=== PATIENT | female | born 1990 | race Caucasian/White ===

== ENCOUNTER 2017-03-16 11:56 | Inpatient (IN) | payer OTHER ==
[~2017-03-16] VITALS: Ht 160 cm; Wt 66.7 kg
[2017-03-16 12:20] VITALS: BP 102/73
--- NOTE | 2017-03-16 12:39 | NUR ---
PATIENT IS A 26 YO FEMALE BIB SELF FOR URINARY PAIN AND BURNING, AWAKE AND ALERT ABLE TO AMBULATE TO BED 11 UA OBTAINED.
--- NOTE | 2017-03-16 12:43 | NUR ---
Dr. Crawford evaluating patient at bedside.
[2017-03-16] MEDS ORDERED: KETOROLAC 60 MG/2 ML VIAL IM ONE (13:20)
[2017-03-16] MEDS ORDERED: MORPHINE SULFATE 4 MG/ML SYR IVP ONE ×3 (13:40→15:05)
[2017-03-16] MEDS ORDERED: ONDANSETRON 4 MG/2 ML VIAL IVP ONE (13:40)
--- NOTE | 2017-03-16 13:53 | NUR ---
US tech at bedside for exam.
--- NOTE | 2017-03-16 14:00 | NUR ---
US again by bedside. Patient tolerating well. Will continue to monitor.
--- NOTE | 2017-03-16 14:24 | NUR ---
pt talking and laughing with family by bedside
--- NOTE | 2017-03-16 15:00 | NUR ---
Pt states pain is 10/10; er md bueno notified and aware; vss; nad. Will continue to monitor.
[2017-03-16 15:34] LABS: HEMATOCRIT 42.1 % (36-48); MEAN CORPUSCULAR HEMOGLOBIN 32 pg (27-31); MEAN CORPUSCULAR HGB CONC 33 g/dL (33-37); MEAN CORPUSCULAR VOLUME 96 fL (80-94); PLATELET COUNT (AUTO) 320 K/uL (140-450); RED CELL DISTRIBUTION WIDTH 11.9 % (11.6-13.7); WHITE BLOOD COUNT (AUTO) 9.5 K/uL (4.8-10.8)
--- NOTE | 2017-03-16 15:42 | NUR ---
pt resting with eyes closed gurriddhi; vss; nad; pt with no complaints; will continue to monitor.
[2017-03-16 16:04] LABS: PROTHROMBIN TIME 10.4 secs (10.8-13.4)
[2017-03-16 16:06] LABS: ANION GAP 9.3 (8-16); CARBON DIOXIDE 29.7 mmol/L (21-32); CREATININE 0.8 mg/dL (0.6-1.3); TOTAL BILIRUBIN 0.4 mg/dL (0.0-1.0)
[2017-03-16 16:11] LABS: EOSINOPHILS % (MANUAL) 2 % (0-4); LYMPHOCYTES % (MANUAL) 38 % (20-46); MONOCYTES % (MANUAL) 3 % (5-12)
[2017-03-16] MEDS ORDERED: ACETAMINOPHEN 325 MG TAB PO PRN (16:20)
[2017-03-16] MEDS ORDERED: MORPHINE SULFATE 2 MG/ML SYR IVP PRN (16:20)
--- NOTE | 2017-03-16 16:42 | NUR ---
Patient will be admitted to care of [facility]. Admited to Med Surg. Will go to room 112A. Belongings list completed. Report to Chester TABARES.
[2017-03-16] MEDS ORDERED: POTASSIUM CHLORIDE 10 MEQ TABER PO SCH (17:00)
--- NOTE | 2017-03-16 17:00 | NUR ---
ADMITTED FROM ER VIA WHEELCHAIR ACCOMPANIED BY PTDonovan TAYLOR. AWAKE, ALERT, AND ORIENTED X4. SPEECH CLEAR. NO C/O PAIN. NO SOB, NOTED. SKIN WARM, DRY, AND INTACT. KEEP COMFORTABLE ON BED. ADMISSION ASSESSMENT DONE. EXPLAINED DIAGNOSIS, PLAN OF CARE, PAIN MANAGEMENT TEACHING, DIET, USE OF CALL LIGHT/BED/TV/BATHROOM. VERBALIZED UNDERSTANDING. CALL LIGHT WITHIN REACH.
[2017-03-16 17:15] VITALS: BP 102/52
[2017-03-16] MEDS: NACL 0.9% 1,000 ML IV SCH (17:52)
--- NOTE | 2017-03-16 17:52 | NUR ---
INFUSED IVF NS AT 100 ML ON RIGHT AC #20 PER MD ORDER. TOLERATED WELL.
[2017-03-16] MEDS: LEVOFLOXACIN 500 MG/D5W PREMIX 100 ML IV SCH (18:01)
--- NOTE | 2017-03-16 18:01 | NUR ---
LEVAQUIN 500 MG IVPB GIVEN BY RN PER MD ORDER. TOLERATED WELL.
[2017-03-16] MEDS: ONDANSETRON 4 MG/2 ML VIAL IVP PRN ×2 (18:31→22:33)
--- NOTE | 2017-03-16 18:45 | NUR ---
DR. PATTERSON WANTED TO CHANGED US ABD COMPLETE STAT NOW INSTEAD TOMORROW 03/17/17 0600.
[2017-03-16] MEDS: metroNIDAZOLE 500 MG TAB PO SCH ×2 (19:00→20:43)
--- NOTE | 2017-03-16 19:05 | NUR ---
US TECH CAME FOR PT. US. PT. RESTING ON BED COMFORTABLY.
--- NOTE | 2017-03-16 19:11 | NUR ---
BEDSIDE REPORT GIVEN TO FORTUNATO GREENFIELD. IVF INFUSING WELL. IN STABLE CONDITION. ALSO ENDORSED TO FORTUNATO GREENFIELD TO CALL DR. PATTERSON FOR RESULTS OF ULTRASOUND.
--- NOTE | 2017-03-16 19:12 | NUR ---
PATIENT IS CURRENTLY RESTING IN BED AWAKE ALERT ORIENTED FAMILY MEMBER BROUGHT SOME FOOD FROM OUTSIDE FOR THE PATIENT TO EAT BUT PATIENT IS NAUSEATED PATIENT ENCOURAGED TO NOT EAT FOR NOW IF SHE FEELS NAUSEATED ONLY ICE CHIPS FOR NOW AND IF SHE TOLERATES THEN SMALL SIPS OF WATER. PATIENT VERBALIZES UNDERSTANDING FOR NOW.IVF INFUSING WELL IV SITE PATENT. PATIENT DENIES PAIN AT THIS TIME.ULTRASOUND ALMOST DONE.CALL LIGHT WITHIN REACH WILL CONTINUE TO MONITOR.
--- NOTE | 2017-03-16 19:13 | NUR ---
Patient's Plan of Care was discussed and reviewed with PRINT BUYER: FORTUNATO PADGETT
[2017-03-16 20:00] VITALS: BP 117/67
--- NOTE | 2017-03-16 20:13 | NUR ---
FLAGYL STILL NOT GIVEN PATIENT IS VERY NAUSEATED AND VOMITED A LITTLE BIT NOT TIME FOR ZOFRAN BUT WAS PROVIDED WITH EMESIS BAG AND NEEDS MET.PATIENT COMFORTABLE WILL WAIT FOR HIS NAUSEA TO SUBSIDE AND WILL TRY TO ADMINISTER FLAGYL ANTIBIOTIC AGAIN LATER.
--- NOTE | 2017-03-16 20:43 | NUR ---
PATIENT IS CURRENTLY CALM AND I TOLD HER IF SHE IS FEELING NAUSEATED AT THIS TIME PATIENT SAID NO IT SUBSIDED AT THIS TIME AND I TOLD HER I WILL GIVE HER THE FLAGYL PO ANTIBIOTIC SO SHE CAN TAKE IT WITH ONLY SMALL SIP OF WATER.PATIENT VERBALIZES UNDERSTANDING AND IMPORTANCE OF TAKING HER ANTIBIOTIC AND TOOK IT WILL CONTINUE TO MONITOR.CALL LIGHT WITHIN REACH.
[2017-03-16] MEDS ORDERED: INFLUENZA VIRUS VACCINE QUAD 0.5 ML SYR IMVAC SCH (21:00)
--- NOTE | 2017-03-16 21:00 | NUR ---
MADE ROUNDS AND INFORM THE PATIENT AND VISITOR THAT VISITING HOURS ARE OVER AND FAMILY MEMBER AUNT TOLD THAT SHE SPOKE TO MD PATTERSON AND HE HAD TOLD THEM THAT SHE CAN STAY WITH THE PATIENT. CHARGE NURSE TANIA WENT AND SPOKE TO THE PATIENT AND VISITOR AND THEN SHE ALLOWED THE VISITOR TO STAY.
--- NOTE | 2017-03-16 21:11 | NUR ---
I CALLED MD ANDIE PATTERSON EXCHANGE THEY WILL PAGE MD PATTERSON I WILL INFORM OF ULTRASOUND RESULTS.
--- NOTE | 2017-03-16 21:28 | NUR ---
MD LUGO PROGRAM TECHNICIAN [employer] HANDLING PLANT OPERATOR FOR MD PATTERSON AND I READ HIM THE ULTRASOUND OF THE ULTRASOUND ABDOMEN AND US APPENDIX AND HE IS AWARE OF RESULTS AND NO NEW ORDERS WERE GIVEN.
--- NOTE | 2017-03-16 23:04 | NUR ---
PATIENT RESTING COMFORTABLY IN BED I ASKED HER IF SHE IS HAVING PAIN PATIENT SAID NO AND I ASKED THE PATIENT IF IT HURTS WHEN SHE URINATES OF FEELS THAT SHE IS NOT EMPTYING HER BLADDER COMPLETELY PATIENT STATES,"WHEN I CAME IN I WAS FEELING PAINFUL URINATION AND I WAS FEELING LIKE I WAS RETAINING URINE BUT I WENT TO THE BATHROOM A FEW MINUTES AGO AND I DIDN'T HAVE ANY TROUBLE URINATING OR PAINFUL URINATION." WILL CONTINUE TO MONITOR THE PATIENT.CALL LIGHT WITHIN REACH.
[2017-03-16 23:59] VITALS: BP 97/66
--- NOTE | 2017-03-17 00:14 | NUR ---
PATIENT IS CURRENTLY RESTING IN BED AT THIS TIME NEEDS PATIENT DENIES PAIN.WILL CONTINUE TO MONITOR.
[2017-03-17] MEDS: NACL 0.9% 1,000 ML IV SCH ×3 (02:17→22:17)
--- NOTE | 2017-03-17 02:30 | NUR ---
PATIENT IS CURRENTLY RESTING IN BED AWAKE ON AND OFF AND HER VISITOR OR AUNT IS AT THE BEDSIDE AWAKE ON HER PHONE OR TALKING TO THE PATIENT. I ASKED THE PATIENT IF SHE IS IN PAIN PATIENT SAID,"NO." AND PATIENT THEN STATES,"IM HUNGRY AND SHE REQUESTED FOR HALF A SANDWICH PATIENT SAYS SHE IS NOT NAUSEATED AT THIS TIME." SO I GAVE HER HALF A SANDWICH AND WILL CONTINUE TO MONITOR.IVF INFUSING WELL.IV SITE PATENT.PATIENT VISITOR OR AUNT ASKED IF MD WILL COME IN THE MORNING I EXPLAINED THAT MD USUALLY MAKE DAILY ROUNDS BUT I CANNOT GIVE HER SPECIFIC TIME WHEN MD WILL COME BECAUSE HE CAN COME ANY TIME OF THE DAY.PATIENT AND AUNT VERBALIZE UNDERSTANDING.VISITOR OR AUNT ASKING FOR A BLANKET AND I GAVE HER A BLANKET.
[2017-03-17] MEDS: MORPHINE SULFATE 4 MG/ML SYR IVP PRN ×2 (04:53→10:26)
--- NOTE | 2017-03-17 04:55 | NUR ---
PATIENT IS CURRENTLY GETTING IV PAIN MEDICATION MORPHINE ADMINISTERED BY RAYSHAWN JORDAN VS TAKEN BY RAYSHAWN JORDAN.PATIENT STABLE RESTING IN BED VERY IRRITABLE.WILL CONTINUE TO MONITOR.
--- NOTE | 2017-03-17 05:31 | NUR ---
PATIENT IS CURRENTLY STABLE LISTENING TO MUSIC AT THIS TIME NEEDS MET WILL CONTINUE TO MONITOR.CALL LIGHT WITHIN REACH.
[2017-03-17 06:40] LABS: BASOPHILS # (AUTO) 0.4 K/uL (0.00-0.22); BASOPHILS % (AUTO) 4.4 % (0.0-2.0); EOSINOPHILS # (AUTO) 0.2 K/uL (0-0.4); EOSINOPHILS % (AUTO) 2.6 % (0.0-4.0); HEMATOCRIT 37.3 % (36-48); HEMOGLOBIN 12.5 g/dL (12.0-16.0); LYMPHOCYTES # (AUTO) 1.7 K/uL (2.5-16.5); LYMPHOCYTES % (AUTO) 19.9 % (20.5-51.1); MEAN CORPUSCULAR HEMOGLOBIN 31 pg (27-31); MEAN CORPUSCULAR HGB CONC 33 g/dL (33-37); MEAN CORPUSCULAR VOLUME 94 fL (80-94); MONOCYTES # (AUTO) 0.9 K/uL (0.8-1.0); MONOCYTES % (AUTO) 10.5 % (1.7-9.3); NEUTROPHILS # (AUTO) 5.3 K/uL (1.8-7.7); NEUTROPHILS % (AUTO) 62.6 % (42.2-75.2); PLATELET COUNT (AUTO) 267 K/uL (140-450); RED BLOOD CELL COUNT(AUTO) 3.97 MIL/uL (4.20-5.40); WHITE BLOOD COUNT (AUTO) 8.5 K/uL (4.8-10.8)
[2017-03-17 06:44] LABS: ANION GAP 6.6 (8-16); CARBON DIOXIDE 29.7 mmol/L (21-32); CREATININE 0.9 mg/dL (0.6-1.3); POTASSIUM 4.3 mmol/L (3.5-5.1)
[2017-03-17 06:50] LABS: ALBUMIN 3.3 g/dL (3.4-5.0); TOTAL BILIRUBIN 0.3 mg/dL (0.0-1.0)
--- NOTE | 2017-03-17 07:00 | NUR ---
PATIENT IS CURRENTLY RESTING IN BED NO PAIN OR DISCOMFORT NOTED AT THIS TIME NEEDS MET.IVF INFUSING WELL NO INFILTRATION NOTED WILL CONTINUE TO MONITOR.
--- NOTE | 2017-03-17 07:50 | NUR ---
PATIENT IS AWAKE, ALERT AND ORIENTED X4, RESPIRATORY EFFORT IS EVEN AND UNLABORED. NO COMPLAINTS OF PAIN AT THIS TIME. NO SIGNS AND SYMPTOMS OF DISTRESS NOTED AT THIS TIME. DISCUSSED PLAN OF CARE WITH PATIENT AND SHE VERBALIZED UNDERSTANDING. IV FLUID INFUSING AT 100 ML/HR INTO RIGHT AC 20G. SITE IS CLEAN, DRY AND PATENT. BED IS IN LOWEST POSITION, SIDERAILS UP X2, CALL LIGHT PLACED WITHIN REACH. WILL CONTINUE TO MONITOR. PATIENTS VISITOR IS SLEEPING AT THE BEDSIDE.
[2017-03-17] MEDS: ENOXAPARIN 30 MG/0.3 ML SYR SUBQ SCH (10:01)
[2017-03-17 10:07] VITALS: BP 106/69
--- NOTE | 2017-03-17 10:30 | NUR ---
PATIENT WAS COMPLAINING OF PAIN, WILL MEDICATE ORDERED.
[2017-03-17 10:41] LABS: APPEARANCE,URINE SL CLOUDY (CLEAR); BILIRUBIN,URINE NEGATIVE (NEGATIVE); BLOOD, URINE 2+ (NEGATIVE); COLOR,URINE YELLOW (YELLOW); LEUKOCYTE ESTERASE ,URINE NEGATIVE (NEGATIVE); NITRITE, URINE NEGATIVE (NEGATIVE); UGLUCOSE NEGATIVE (NEGATIVE)
--- NOTE | 2017-03-17 11:37 | NUR ---
RESULT OF CT CALLED TO DR. PATTERSON AND MADE AWARE.
--- NOTE | 2017-03-17 11:39 | NUR ---
INFORMED PATIENT THAT THE DOCTOR HAS CHANGED HER STATUS FROM OBSERVATION TO ADMIT SO WE CAN PROVIDE HER THE CARE THAT SHE NEEDS AT THIS TIME. GAVE PATIENT A HAT TO PUT INTO TOILET AND A STRAINER. SHE ASKED ME WHY AND I EXPLAINED THAT SCANS SHOWED A POSSIBLE STONE BUT THAT DR PATTERSON WILL DISCUSS FURTHER RESULTS WITH HER. FOR NOW WE JUST NEED TO DRAIN HER URINE. PATIENT VERBALIZED UNDERSTANDING.
[2017-03-17 11:46] LABS: RBC,URINE 3-10 (FEW) /HPF (0-5); WBC,URINE 0-5 (RARE) /HPF (0-5)
[2017-03-17] MEDS: metroNIDAZOLE 500 MG TAB PO SCH ×2 (13:16→16:18)
[2017-03-17 16:00] VITALS: BP 110/76
--- NOTE | 2017-03-17 16:00 | NUR ---
HAS A VISITOR AT THIS TIME. WILL CONTINUE TO MONITOR.
[2017-03-17] MEDS: LEVOFLOXACIN 500 MG/D5W PREMIX 100 ML IV SCH (16:18)
--- NOTE | 2017-03-17 16:40 | NUR ---
PATIENT STATED THAT SHE WOULD LIKE TO TAKE A SHOWER. I ASKED HER IF SHE COULD WAIT UNTIL HER LEVAQUIN FINISHED INFUSING. SHE STATED SHE CAN WAIT.
--- NOTE | 2017-03-17 18:46 | NUR ---
PATIENT IS TAKING A SHOWER. WRAPPED UP HER IV SITE TO PREVENT IT FROM GETTING WET. FAMILY MEMBER IS IN THE SHOWER ROOM WITH PATIENT.
--- NOTE | 2017-03-17 19:10 | NUR ---
ENDORSED PATIENT TO [place]ER[place] HELPER NURSE FOR CONTINUITY OF CARE. PATIENT IS STABLE.
--- NOTE | 2017-03-17 19:11 | NUR ---
PATIENT JUST SHOWERED SHE IS RESTING IN BED DENIES PAIN AND DENIES ANY N/V AUNT ANDREW AT BEDSIDE WITH THE PATIENT.PATIENT IS AWARE THAT WE NEED TO STRAIN HER URINE.CALL LIGHT WITHIN REACH WILL CONTINUE TO MONITOR.
[2017-03-17 20:00] VITALS: BP 89/50
--- NOTE | 2017-03-17 20:00 | NUR ---
Patient's Plan of Care was discussed and reviewed with PARTS SPECIALIST: FORTUNATO PADGETT.
--- NOTE | 2017-03-17 20:15 | NUR ---
PATIENT IS CURRENTLY SITTING IN BED PUTTING HER MAKE UP ON. AUNT ANDREW CONTINUES TO BE AT BEDSIDE WITH THE PATIENT. I CHECKED PATIENT'S IV SITE AND DRESSING HAS OLD BLOOD TO IT SO I CHANGED HER IV SITE DRESSING AND THEN RECONNECTED HER IV AGAIN AND ITS CURRENTLY INFUSING WELL.CALL LIGHT WITHIN REACH.
--- NOTE | 2017-03-17 20:30 | NUR ---
AUNT ANDREW SAYS SHE IS LEAVING AND GOES BACK AND FOURTH ACCORDING TO HER TO THE FRONT LOBBY. SHE IS AWARE OF VISITING HOURS.
--- NOTE | 2017-03-17 22:36 | NUR ---
PATIENT RESTING IN BED QUIETLY WILL CONTINUE TO MONITOR.
--- NOTE | 2017-03-17 23:04 | NUR ---
PATIENT SLEEPING WELL IVF INFUSING WELL IV SITE PATENT.
[2017-03-18 00:18] VITALS: BP 89/50
--- NOTE | 2017-03-18 02:30 | NUR ---
PATIENT COMPLAINS OF PAIN AND DISCOMFORT 02/03 VS TAKEN CURRENTLY ITS 94/55 HR 67 R20 02SAT 98% RN JOEL AWARE SHE WILL MEDICATE THE PATIENT FOR PAIN. VISITOR ANDREW KATE CAME TO NURSES STATION VERY DEMANDING REQUESTED FOR 2 PILLOWS AND 2 BLANKETS RUDELY AND WHEN DYANA MOORE TOOK THE BLANKETS SHE WAS VERY RUDE AND LATER TOLD ME "TAKE THIS BLANKETS BACK THEM I DON'T WANT THEM AND SHE THREW THEM ON THE SIDE OF THE BED." VISITOR CLAIMS THAT STAFF IS RUDE AND IS MAD ESPECIALLY WITH CHARGE NURSE TANIA VISITOR STATES,"CHARGE NURSE IS ALWAYS INTERRUPTING HER WHEN SHE TRIES TALKING TO THE NURSE." PATIENT DOESN'T SAY ANYTHING SHE IS CALM AND QUIET RESTING IN BED JUST NODS HEAD AND AGREES WITH THE VISITOR.
[2017-03-18] MEDS: MORPHINE SULFATE 4 MG/ML SYR IVP PRN (02:37)
[2017-03-18] MEDS: ONDANSETRON 4 MG/2 ML VIAL IVP PRN (03:19)
--- NOTE | 2017-03-18 03:34 | NUR ---
PATIENT IS RESTING IN BED PATIENT STATES SHE FEELS NAUSEATED WAS MEDICATED BUT STILL FEELS NAUSEATED EMESIS BAG PROVIDED FOR THE PATIENT.IVF INFUSING WELL WILL CONTINUE TO MONITOR.CALL LIGHT WITHIN REACH.
--- NOTE | 2017-03-18 04:11 | NUR ---
PATIENT IS CURRENTLY RESTING IN BED IVF INFUSING WELL IV SITE PATENT.WILL CONTINUE TO MONITOR.
[2017-03-18] MEDS: NACL 0.9% 1,000 ML IV SCH (04:54)
--- NOTE | 2017-03-18 07:33 | NUR ---
PATIENT STABLE REPORT ENDORSED TO RAYSHAWN CURRIE HE WILL RESUME CARE IVF INFUSING WELL IV SITE PATENT.
--- NOTE | 2017-03-18 07:34 | NUR ---
PATIENT IS SITTING IN BED COMFORTABLY. IN STABLE CONDITION, NO DISTRESS NOTED. DENIES ANY PAIN AT THIS TIME. RESPIRATIONS EVEN, UNLABORED, ON ROOM AIR. IV IS INTACT, PATENT, AND INFUSING. AAOX4. SKIN INTACT, WARM TO TOUCH, AND COLOR APPROPRIATE TO ETHNICITY. PATIENT AMBULATED TO BATHROOM AND BACK TO BED INDEPENDENTLY WITH STEADY GAIT. LUNGS CTA ON ALL LOBES. PLAN OF CARE REVIEWED WITH PATIENT. SAFETY MEASURES IN PLACE, CALL LIGHT WITHIN REACH, BED RAILS UPX2. WILL CONTINUE TO MONITOR.
[2017-03-18 08:00] VITALS: BP 108/63
[2017-03-18] MEDS: metroNIDAZOLE 500 MG TAB PO SCH ×2 (09:35→12:21)
[2017-03-18] MEDS: ENOXAPARIN 30 MG/0.3 ML SYR SUBQ SCH (09:42)
--- NOTE | 2017-03-18 10:05 | NUR ---
PATIENT HAS BEEN SCREENED AND CATEGORIZED LOW NUTRITION RISK. PATIENT WILL BE SEEN WITHIN 7 DAYS OF ADMISSION. 03/23/[address]
--- NOTE | 2017-03-18 11:45 | NUR ---
UROLOGIST, DR. GLEZ AT BEDSIDE WITH PATIENT. WILL CONTINUE TO MONITOR.
--- NOTE | 2017-03-18 12:22 | NUR ---
PATIENT SITTING IN BED WITH AUNT AT BEDSIDE. NO DISTRESS NOTED. RESPIRATIONS EVEN, UNLABORED, ON ROOM AIR. DENIES ANY PAIN AT THIS TIME. REPORTS FEELING "PRESSURE, BUT NO PAIN ON LEFT SIDE FLANK AREA OF ABD." MEDICATIONS DUE GIVEN. SAFETY MEASURES IN PLACE, CALL LIGHT WITHIN REACH. WILL CONTINUE TO MONITOR.
--- NOTE | 2017-03-18 13:57 | NUR ---
CM NOTE INITIAL REVIEW FAXED TO [facility] [phone] SILVIA SERRANOA # [phone]
--- NOTE | 2017-03-18 15:00 | NUR ---
PATIENT IS SLEEPING WITH AUNT AT BEDSIDE. NO DISTRESS NOTED. RESPIRATIONS EVEN, UNLABORED, ON ROOM AIR. IV PATENT, INTACT, AND INFUSING. SAFETY MEASURES IN PLACE, CALL LIGHT WITHIN REACH. WILL CONTINUE TO MONITOR.
[2017-03-18 16:00] VITALS: BP 96/57
--- NOTE | 2017-03-18 16:30 | NUR ---
PATIENT SITTING IN BED WITH AUNT AT BEDSIDE. NO DISTRESS NOTED. DENIES ANY PAIN. PATIENT AGREES TO BE DISCHARGED HOME PER DR. PATTERSON IF PATIENT FEELS NO PAIN TODAY. PATIENT TO BE DISCHARGED HOME AND IS AWARE.
[2017-03-18] MEDS ORDERED: ACET-2869 PO (16:55)
[2017-03-18] MEDS ORDERED: ONDA4ODT1 SL (16:56)
[2017-03-18] MEDS ORDERED: CEPH250C16 PO (16:57)
--- NOTE | 2017-03-18 17:30 | NUR ---
PATIENT SITTING IN BED WITH AUNT AT BEDSIDE. NO DISTRESS NOTED. DISCHARGE INSTRUCTIONS, FOLLOW-UP VISITS, AND MEDICATION INSTRUCTIONS/PRESCRIPTIONS GIVEN. ANSWERED ALL QUESTIONS FROM PATIENT/AUNT REGARDING DISCHARGE INSTRUCTIONS. PATIENT VERBALIZED COMPLETE UNDERSTANDING. IV REMOVED WITH MINIMAL BLOOD AND LUMEN COMPLETELY INTACT. SKIN IS INTACT. PATIENT ABLE TO AMBULATE INDEPENDENTLY WITH STEADY GAIT. ID BANDS REMOVED AND ALL BELONGINGS WITH PATIENT IN BAGS. AWAITING FOR TO ARRIVE TO TAKE PATIENT HOME VIA PRIVATE VEHICLE.
--- NOTE | 2017-03-18 17:40 | NUR ---
PATIENT'S AT [facility] READY TO TAKE PATIENT HOME. ESCORTED PATIENT DOWN VIA AMBULATORY, REFUSES WHEELCHAIR TO DISCHARGE. ABLE TO AMBULATE WITH STEADY GAIT. PATIENT DISCHARGED HOME VIA PRIVATE VEHICLE IN STABLE CONDITION.
[2017-03-19 08:32] LABS: CHLAMYDIA TRACHOMATIS AMP DNA Negative (Negative)
== END 2017-03-18 17:40 | disposition home or self-care (01) | DRG 465 ==
LOC: MED 11:56 → MTU 16:24 → OBSVTOIN 03-17 11:47
PROVIDERS: ADMIT Hospitalist; ATTEND Hospitalist
DX: N20.2 Calculus of kidney with calculus of ureter (principal); Z79.899 Other long term (current) drug therapy; N83.202 Unspecified ovarian cyst, left side; N83.201 Unspecified ovarian cyst, right side
CPT/HCPCS: 96372; 96374; 96375; 96376; 99285; G0378; 36415; 74150; 76700; 76705; 76830; 80053; 81001; 83690; 85025; 85610; 85730; 87040; 87070; 87081; 87086; 87205; 87210; 87491; J1650; J1885; J1956; J2270; J2405; J7030; Q0092

== ENCOUNTER 2017-05-25 22:21 | Emergency (ER) | payer OTHER ==
[~2017-05-25] VITALS: Ht 160 cm; Wt 67.1 kg
[~2017-05-25 22:21] MED LIST: ACET-2869 PO; CEPH250C16 PO; ONDA4ODT1 SL
[2017-05-25 22:27] VITALS: BP 133/73
--- NOTE | 2017-05-25 22:34 | NUR ---
TO LOBBY AMB, VS STABLE A/W FOR BED , HARLEY NOTED
--- NOTE | 2017-05-26 04:53 | NUR ---
26Y/F PT. PRESENTS TO ED WITH C/O ABDOMINAL PAIN X 3 DAYS. PT. HX. KIDNEY STONE, ALSO STATES VAGINAL BLEEDING, NO N/V/D, NO FEVER. STATES . HCG NEG AT THIS TIME. AAO X4, AMBULATORY WITH STEADY GAIT. RESPIRATIONS ROOM AIR, EVEN AND UNLABORED. ABDOMEN SOFT, NON TENDER, ACTIVE BS X4. C/O PAIN 5/10, VSS, ER MADE AWARE OF PT. STATUS.
[2017-05-26 05:54] LABS: BASOPHILS # (AUTO) 0.3 K/uL (0.00-0.22); BASOPHILS % (AUTO) 3.7 % (0.0-2.0); EOSINOPHILS # (AUTO) 0.3 K/uL (0-0.4); EOSINOPHILS % (AUTO) 2.9 % (0.0-4.0); HEMATOCRIT 40.2 % (36-48); HEMOGLOBIN 13.6 g/dL (12.0-16.0); LYMPHOCYTES # (AUTO) 2.4 K/uL (2.5-16.5); LYMPHOCYTES % (AUTO) 25.8 % (20.5-51.1); MEAN CORPUSCULAR HEMOGLOBIN 32 pg (27-31); MEAN CORPUSCULAR HGB CONC 34 g/dL (33-37); MEAN CORPUSCULAR VOLUME 93 fL (80-94); MONOCYTES # (AUTO) 0.6 K/uL (0.8-1.0); MONOCYTES % (AUTO) 6.9 % (1.7-9.3); NEUTROPHILS # (AUTO) 5.7 K/uL (1.8-7.7); NEUTROPHILS % (AUTO) 60.7 % (42.2-75.2); PLATELET COUNT (AUTO) 283 K/uL (140-450); RED CELL DISTRIBUTION WIDTH 11.9 % (11.6-13.7); WHITE BLOOD COUNT (AUTO) 9.3 K/uL (4.8-10.8)
[2017-05-26 05:55] LABS: ALBUMIN 3.6 g/dL (3.4-5.0); ANION GAP 14.5 (8-16); CREATININE 0.9 mg/dL (0.6-1.3); POTASSIUM 3.5 mmol/L (3.5-5.1); TOTAL BILIRUBIN 0.3 mg/dL (0.0-1.0)
--- NOTE | 2017-05-26 06:50 | NUR ---
Patient discharged with v/s stable. Written and verbal after care instructions given and explained. Patient alert, oriented and verbalized understanding of instructions. Ambulatory with steady gait. All questions addressed prior to discharge. ID band removed. Patient advised to follow up with PMD. Rx of MOM given. Patient educated on indication of medication including possible reaction and side effects. Opportunity to ask questions provided and answered.
[2017-05-26 06:51] VITALS: BP 111/69
== END 2017-05-26 06:50 | disposition home or self-care (01) ==
LOC: MED 22:21
DX: R10.30 Lower abdominal pain, unspecified (principal); N93.9 Abnormal uterine and vaginal bleeding, unspecified; Z87.442 Personal history of urinary calculi; Z79.899 Other long term (current) drug therapy
CPT/HCPCS: 36415; 80053; 81002; 81025; 84702; 85025; 99285

== ENCOUNTER 2017-12-08 21:53 | Emergency (ER) | payer OTHER ==
[~2017-12-08] VITALS: Ht 160 cm; Wt 65.8 kg
[2017-12-08 21:55] VITALS: BP 129/66
--- NOTE | 2017-12-08 21:59 | NUR ---
TO BED # 4 AMBULATORY, REPORT GIVEN TO AUDRA TABARES
--- NOTE | 2017-12-08 22:00 | NUR ---
ASSUMED CARE OF PT AT THIS TIME. C/O RIGHT FLANK PAIN AND DYSURIA X 1 DAY. AAOX4 WITH EVEN AND STEADY GAIT; PATIENT STATES PAIN OF 9/10 AT THIS TIME; VSS; PATIENT POSITIONED FOR COMFORT; HOB ELEVATED; BEDRAILS UP X2; BED DOWN. ER MD MADE AWARE OF PT STATUS. WILL CONTINUE TO MONITOR.
--- NOTE | 2017-12-08 23:12 | NUR ---
Dr. Crawford evaluating patient at bedside.
[2017-12-08] MEDS ORDERED: KETOROLAC 60 MG/2 ML VIAL IM ONE (23:15)
[2017-12-08 23:30] VITALS: BP 118/64
--- NOTE | 2017-12-08 23:30 | NUR ---
Patient discharged with v/s stable. Written and verbal after care instructions given and explained. Patient alert, oriented and verbalized understanding of instructions. Ambulatory with steady gait. All questions addressed prior to discharge. ID band removed. Patient advised to follow up with PMD. Rx of MOTRIN, ZOFRAN, AND CIPRO given. Patient educated on indication of medication including possible reaction and side effects. Opportunity to ask questions provided and answered.
== END 2017-12-08 23:30 | disposition home or self-care (01) ==
LOC: MED 21:53
DX: N39.0 Urinary tract infection, site not specified (principal)
CPT/HCPCS: 81002; 81025; 96372; 99283; J1885

== ENCOUNTER 2018-09-27 00:22 | Emergency (ER) | payer OTHER ==
[~2018-09-27] VITALS: Ht 160 cm; Wt 72.6 kg
[~2018-09-27 00:22] MED LIST changes: -ACET-2869 PO; +HYDR-5122 PO; +ONDA-24 SL; -ONDA4ODT1 SL
[2018-09-27 00:40] VITALS: BP 124/85
--- NOTE | 2018-09-27 00:46 | NUR ---
PT AMBULATED TO ER BED 11
--- NOTE | 2018-09-27 00:52 | NUR ---
C/O RLQ PAIN, RADIATING TO R LOWER BACK AND ALSO DYSURIA, X1 MONTH INTERMITTENTLY. REPORTS SIMILAR SYMPTOMS WITH UTI 1 YEAR AGO.
--- NOTE | 2018-09-27 00:58 | NUR ---
DR SMALLWOOD AT BEDSIDE.
[2018-09-27] MEDS ORDERED: fentaNYL 0.05 MG/ML VIAL IM ONE (01:15)
[2018-09-27] MEDS ORDERED: ONDANSETRON 4 MG ODT PO ONE (01:30)
--- NOTE | 2018-09-27 02:05 | NUR ---
US AT BEDSIDE.
[2018-09-27 03:43] VITALS: BP 111/86
--- NOTE | 2018-09-27 03:43 | NUR ---
DISCHARGE PAPERWORK GIVEN TO PT. 0/10 PAIN WITH VSS. RX OF ZOFRAN AND TRAMADOL GIVEN. SIDE EFFECTS EXPLAINED. INSTRUCTED TO F/U WITH PCP AND WHEN TO RETURN TO ER. PT VERBALLIZED UNDERSTANDING OF DC INSTRUCTIONS. ALL QUESTIONS ANSWERED.
== END 2018-09-27 03:43 | disposition home or self-care (01) ==
LOC: MED 00:22
DX: N84.0 Polyp of corpus uteri (principal); Z79.899 Other long term (current) drug therapy
CPT/HCPCS: 76830; 81002; 81025; 96372; 99284; J3010; Q0092; Q0162

== ENCOUNTER 2018-12-03 20:59 | Emergency (ER) | payer OTHER ==
[~2018-12-03] VITALS: Ht 160 cm; Wt 72.6 kg
[2018-12-03 21:21] VITALS: BP 119/68
--- NOTE | 2018-12-03 21:30 | NUR ---
PT BIB SELF C/O VOMITING XTODAY. PT STATES SHE HAS HAD ~10 EPISODES OF YELLOW EMESIS SINCE THIS MORNING. PT STATES 9/10 CONSTANT EPIGASTRIC PAIN THAT FEELS LIKE "BLOATING". PT STATES LBM WAS TODAY, WNL PER PT. PT ACTING APPROPRIATLY, SPEAKING IN CLEAR AND COMPLETE SENTENCES. PT IN BED, BED IN LOWER LOCKED POSITION; BEDRAILS UP X1. PENDING ERMD LOUISA. PMH: DENIES
[2018-12-03] MEDS ORDERED: ONDANSETRON 4 MG ODT PO ONE (21:35)
[2018-12-03 23:12] LABS: APPEARANCE,URINE CLEAR (CLEAR); BILIRUBIN,URINE NEGATIVE (NEGATIVE); BLOOD, URINE NEGATIVE (NEGATIVE); COLOR,URINE YELLOW (YELLOW); LEUKOCYTE ESTERASE ,URINE NEGATIVE (NEGATIVE); NITRITE, URINE NEGATIVE (NEGATIVE); UGLUCOSE NEGATIVE (NEGATIVE)
--- NOTE | 2018-12-03 23:44 | NUR ---
DR. PARRA AT BEDSIDE.
--- NOTE | 2018-12-04 | NUR ---
Patient discharged with v/s stable. Patient states she is feeling relief from nausea, states 0/10 pain. Patient acting appropriatly and states she is ready to go home. Written and verbal after care instructions given and explained. Patient alert, oriented and verbalized understanding of instructions. Ambulatory with steady gait. All questions addressed prior to discharge. ID band removed. Patient advised to follow up with PMD. Rx of Zofran given. Patient educated on indication of medication including possible reaction and side effects. Opportunity to ask questions provided and answered.
[2018-12-04 00:20] VITALS: BP 118/63
== END 2018-12-04 | disposition home or self-care (01) ==
LOC: MED 20:59
DX: R11.2 Nausea with vomiting, unspecified (principal); R10.13 Epigastric pain; Z79.1 Long term (current) use of non-steroidal anti-inflammatories (NSAID); Z79.899 Other long term (current) drug therapy; Z79.891 Long term (current) use of opiate analgesic
CPT/HCPCS: 81003; 81025; 99283; Q0162

== ENCOUNTER 2020-02-19 18:58 | Emergency (ER) | payer OTHER ==
[~2020-02-19] VITALS: Ht 160 cm; Wt 72.6 kg
[2020-02-19 19:07] VITALS: BP 138/79
--- NOTE | 2020-02-19 19:08 | NUR ---
Pt placed in tent for covid precautions
--- NOTE | 2020-02-19 19:10 | NUR ---
29 y/o female from home c/o dizziness and headache x 3 days and loss of taste and smell today. Denies cough/sob. RR even and unlabored. Skin warm, dry, intact. Unknown contact with covid. medhx: denies
--- NOTE | 2020-02-19 19:44 | NUR ---
COVID ORAL SWAB (WEST PACK) COLLECTED AND SENT TO LAB.
--- NOTE | 2020-02-19 19:59 | NUR ---
Patient discharged with v/s stable. Written and verbal after care instructions given and explained. Patient alert, oriented and verbalized understanding of instructions. Ambulatory with steady gait. All questions addressed prior to discharge. ID band removed. Patient advised to follow up with PMD. Rx of zofran, ibuprofen given. Patient educated on indication of medication including possible reaction and side effects. Opportunity to ask questions provided and answered.
--- NOTE | 2020-02-20 16:43 | NUR ---
Covid results received from lab. Results = POSITIVE. Hard copy requested from lab and placed in infection controls mailbox.
== END 2020-02-19 19:59 | disposition home or self-care (01) ==
LOC: MED 18:58
DX: U07.1 COVID-19 (principal); R51 Headache; R11.0 Nausea; Z41.1 Encounter for cosmetic surgery; Z79.899 Other long term (current) drug therapy
CPT/HCPCS: 99283; U0003; 99285